=== PATIENT | female | born 1975 | race Caucasian/White ===

== ENCOUNTER 2017-02-07 12:46 | Emergency (ER) | payer OTHER ==
[2017-02-07] MEDS ORDERED: oxyCOD/ACETAMIN 5 MG/325 MG TABLET PO STA (13:28)
[2017-02-07] MEDS ORDERED: LIDOCAINE PATCH 5% TOP STA (13:28)
[2017-02-07] MEDS ORDERED: DEXAMETHASONE 10 MG/ML VIAL PO STA (13:28)
--- NOTE | 2017-02-07 13:32 | ED Physician Documentation ---
History of Present Illness - Stated complaint Stated Complaint: L SHOULDER PX - Chief complaint Chief Complaint: Ext Problem - Additonal information Additional information: hx from pt 41 f to ER with insidious inset severe L scapula and shoulder pain rad to mid upper L arm no trauma started after a trip to [place] very rare smoker no OCP no leg swellng no fever or cough no chest pain no nita soa except it does hurt to breath no rash saw PMD at [facility] rx motrin and mm relaxant and she is not better tried massage and not better feels something is very wrong Review of Systems Constitutional: denies: Fever, Chills Cardiac: denies: Chest pain / pressure Respiratory: denies: Dyspnea, Cough GI: denies: Abdominal Pain : denies: Now EGA (denies) Musculoskeletal: reports: Neck pain, Extremity pain, Joint pain Neurologic: denies: Focal weakness, Numbness Endocrine: denies: Easy bruising / bleeding Immunocompromised: denies: Immunocompromised PD PAST MEDICAL HISTORY - Past Medical History Past Medical History: Yes GI: Other Psych: Anxiety Other Past Medical History: heart burn - Past Surgical History Past Surgical History: No - Present Medications Home Medications: Ambulatory Orders Medication Instructions Recorded Confirmed Citalopram [CeleXA] 20 mg PO DAILY 02/07/17 02/07/17 Heart Burn Medication 40 mg PO DAILY 02/07/17 Lidocaine Patch 5% [Lidoderm Patch] 1 each TOP DAILY PRN #10 patch 02/07/17 predniSONE [Deltasone] 20 mg PO [id number] #21 tab 02/07/17 traMADol [Ultram] 50 mg PO Q6H PRN #15 tablet 02/07/17 - Allergies Allergies/Adverse Reactions: Allergies Allergy/AdvReac Type Severity Reaction Status Date / Time Penicillins Allergy Itching Verified 02/07/17 13:00 - Social History Does the pt smoke?: Yes Smoking Status: Current some day smoker Does the pt drink ETOH?: No Does the pt have substance abuse?: No - Immunizations Immunizations are current?: Yes - POLST Patient has POLST: No PD ED PE NORMAL - Vitals Vital signs reviewed: Yes (BP high) - General General: Alert and oriented X 3 - Neck Neck: No bony TTP, Other (some TTP low lat left neck) - Cardiac Cardiac: RRR - Respiratory Respiratory: No respiratory distress, Clear bilaterally - Abdomen Abdomen: Soft, Non tender - Derm Derm: Normal color, No rash (no shingles) - Extremities Extremities: No deformity, Other (TYP L trap and deltoid regions s focal redness or swelling, pain with extreme of ABD and ext but ranges rairle well, MSV to rest of arm) - Neuro Neuro: No motor deficit, No sensory deficit Results - Vitals Vitals: Vital Signs - 24 hr 02/07/17 12:57 Temperature 36.6 C Heart Rate 77 Respiratory 18 Rate Blood Pressure 180/110 H O2 Saturation 99 Oxygen O2 Source Room air - Labs Labs: Laboratory Tests 02/07/17 02/07/17 02/07/17 14:15 14:15 14:15 WBC 8.0 RBC 4.85 Hgb 14.3 Hct 41.6 MCV 85.7 MCH 29.5 MCHC 34.4 RDW 12.4 Plt Count 289 MPV 7.3 L Neut # 5.2 Lymph # 2.1 Stark # 0.6 Eos # 0.1 Baso # 0.0 Absolute Nucleated RBC 0.00 Nucleated RBC % 0.0 D-Dimer 210.9 Sodium Potassium Chloride Carbon Dioxide Anion Gap BUN Creatinine Estimated GFR (MDRD) Glucose Calcium Total Bilirubin AST ALT Alkaline Phosphatase Total Protein Albumin Globulin Albumin/Globulin Ratio Lipase Serum HCG, Qual NEGATIVE 02/07/17 14:15 WBC RBC Hgb Hct MCV MCH MCHC RDW Plt Count MPV Neut # Lymph # Stark # Eos # Baso # Absolute Nucleated RBC Nucleated RBC % D-Dimer Sodium 137 Potassium 3.7 Chloride 102 Carbon Dioxide 24 Anion Gap 11.0 BUN 18 Creatinine 0.7 Estimated GFR (MDRD) 93 Glucose 86 Calcium 9.5 Total Bilirubin 0.7 AST 17 ALT 19 Alkaline Phosphatase 52 Total Protein 7.5 Albumin 4.3 Globulin 3.2 Albumin/Globulin Ratio 1.3 Lipase 33 Serum HCG, Qual - Rads (name of study) CXR Radiology: See rad report (no acute) shoulder Radiology: See rad report (no acute) CTA chest Radiology: See rad report (no dissection or aneurysm, no abn to explain the pain ) Departure - Departure Disposition: 01 Home, Self Care Clinical Impression: Left shoulder pain Qualifiers: Chronicity: acute Qualified Code(s): M25.512 - Pain in left shoulder Condition: Good Follow-Up: [facility] [Provider Group] Prescriptions: Lidocaine Patch 5% [Lidoderm Patch] 1 each TOP DAILY PRN #10 patch PRN Reason: Pain predniSONE [Deltasone] 20 mg PO [id number] #21 tab traMADol [Ultram] 50 mg PO Q6H PRN #15 tablet PRN Reason: Severe Pain Comments: All the tests came back fine. The blood work, xrays and even CT scan did not show any heart or lung process to cause the pain nor any deep tissue infection or mass. I am not certain, but given the reassuring work up and the fact that the pain is worse with motion make me think it is likely a muscular problem. Try a tapering course of prednisone instead of the motrin May use lidocaine patches up to 12 hr a day And the muscle relaxant your PMD prescribed. If the pain is still very severe you can also take tramadol but that may cause drowsiness. If the symptoms do not resolve in another week or so, please see you PMD to get further work up for rheumatologic problems such as polymyalgia rheumatics which are beyond the scope of the ER to work up and diagnose Alos please get your blood pressure rechecked - it was high today - likely due to the severe pain
[2017-02-07] MEDS ORDERED: oxyCOD/ACETAMIN 5 MG/325 MG TABLET PO ONE (13:38)
[2017-02-07] MEDS ORDERED: LIDOCAINE PATCH 5% TOP ONE (13:38)
[2017-02-07] MEDS ORDERED: DEXAMETHASONE 10 MG/ML VIAL ONE (13:38)
--- NOTE | 2017-02-07 14:11 | XRAY Preliminary Report ---
Exam: XR Chest 2 View PA/LAT IMPRESSION: 1. No acute disease in the chest. [facility] SITE ID: [id number]
--- NOTE | 2017-02-07 14:12 | XRAY Preliminary Report ---
Exam: XR Shoulder 3 View LT IMPRESSION: 1. No acute osseous abnormalities. Normal alignment. 2. Mild degenerative changes of the left shoulder. [facility] SITE ID: [id number]
--- NOTE | 2017-02-07 14:14 | XRAY Report ---
EXAM: CHEST RADIOGRAPHY EXAM DATE: 02/07/2017 01:47 PM. CLINICAL HISTORY: Severe L scapula/shoulder pain. COMPARISON: None. TECHNIQUE: 2 views. FINDINGS: Lungs/Pleura: No focal opacities evident. No pleural effusion. No pneumothorax. Normal volumes. Mediastinum: Heart size is normal. Aorta is mildly tortuous. Other: No acute osseous abnormalities. IMPRESSION: 1. No acute disease in the chest. [facility] Referring Provider Line: [phone] SITE ID: [id number]
--- NOTE | 2017-02-07 14:15 | XRAY Report ---
EXAM: LEFT SHOULDER RADIOGRAPHY EXAM DATE: 02/07/2017 01:48 PM. CLINICAL HISTORY: Severe L scapula and shoulder pain. COMPARISON: None. TECHNIQUE: 3 views. FINDINGS: Bones: No acute fracture or bony lesion. Minimal degenerative spurring. Type I acromion. Joints: Normal alignment. No dislocation. Mild joint space narrowing of the left acromioclavicular an d left glenohumeral joints. Soft tissues: The visualized hemithorax is unremarkable. No soft tissue swelling. IMPRESSION: 1. No acute osseous abnormalities. Normal alignment. 2. Mild degenerative changes of the left shoulder. [facility] Referring Provider Line: [phone] SITE ID: [id number]
[2017-02-07 14:27] LABS: BASOPHILS % (AUTO) 0.5 %; EOSINOPHILS # (AUTO) 0.1 10^3/uL (0.0-0.7); EOSINOPHILS % (AUTO) 1.1 %; HCT - HEMATOCRIT 41.6 % (37.0-47.0); HGB - HEMOGLOBIN 14.3 g/dL (12.0-16.0); LYMPHOCYTES # (AUTO) 2.1 10^3/uL (1.5-3.5); LYMPHOCYTES % (AUTO) 25.9 %; MEAN CORPUSCULAR HEMOGLOBIN 29.5 pg (27.0-31.0); MEAN CORPUSCULAR HGB CONC 34.4 g/dL (32.0-36.0); MEAN CORPUSCULAR VOLUME 85.7 fL (81.0-99.0); MEAN PLATELET VOLUME 7.3 fL (7.9-10.8); MONOCYTES # (AUTO) 0.6 10^3/uL (0.0-1.0); MONOCYTES % (AUTO) 7.1 %; NEUTROPHILS # (AUTO) 5.2 10^3/uL (1.5-6.6); NEUTROPHILS % (AUTO) 65.4 %; RED BLOOD COUNT 4.85 10^6/uL (4.20-5.40); RED CELL DISTRIBUTION WIDTH 12.4 % (12.0-15.0)
[2017-02-07] MEDS ORDERED: SODIUM CHLORIDE FLUSH 0.9% 10 ML SYRINGE IVP ONE ×2 (14:34→15:03)
[2017-02-07 14:35] LABS: ALBUMIN/GLOBULIN RATIO 1.3 (1.0-2.2); BILIRUBIN,TOTAL 0.7 mg/dL (0.2-1.0); CALCIUM 9.5 mg/dL (8.5-10.3); CREATININE 0.7 mg/dL (0.4-1.0); POTASSIUM 3.7 mmol/L (3.5-5.0); TOTAL PROTEIN 7.5 g/dL (6.7-8.2)
[2017-02-07] MEDS ORDERED: MORPHINE 2 MG/ML SYRINGE IVP STA (14:52)
[2017-02-07] MEDS ORDERED: MORPHINE 2 MG/ML SYRINGE ONE (14:59)
[2017-02-07] MEDS ORDERED: IOPAMIDOL-300 100 ML VIAL ONE (15:08)
[2017-02-07] MEDS ORDERED: IOPAMIDOL-300 100 ML VIAL IVP ONE (15:09)
--- NOTE | 2017-02-07 15:40 | CT Preliminary Report ---
Exam: CT Chest Angio (AORTA) IMPRESSION: No acute abnormality. No aortic aneurysm or dissection. No findings to explain upper back and left sh oulder pain. [facility] SITE ID: [id number]
--- NOTE | 2017-02-07 15:43 | CT Report ---
EXAM: CT ANGIOGRAM CHEST EXAM DATE: 02/07/2017 03:17 PM. CLINICAL HISTORY: Severe L shoulder and upper back pain. COMPARISONS: Chest and shoulder radiography performed earlier the same day. TECHNIQUE: Routine axial helical CT angiographic imaging was performed through the chest. IV Contrast: 80 cc Iso jolanta 300. Reconstructions: Coronal, sagittal, and 3D MIP coronal and sagittal. In accordance with CT protocol optimization, one or more of the following dose reduction techniques w ere utilized for this exam: automated exposure control, adjustment of mA and/or KV based on patient s ize, or use of iterative reconstructive technique. FINDINGS: Vascular Structures: Normal. No aneurysm, dissection, or atherosclerotic disease of the thoracic aort a. Note that evaluation for intramural hematoma is somewhat suboptimal secondary to the absence of a precontrast phase. The visualized pulmonary arteries are within normal limits; no pulmonary embolism. Conventional branching pattern of the great vessels. Lungs/Pleura: 2 mm calcified granuloma in the lateral inferior right upper lobe. No consolidation, garcia spicious nodules, or edema. No effusions or pneumothorax. Mediastinum: Normal. No cardiac enlargement or adenopathy. No pericardial effusion. Upper abdomen: Within normal limits. Bones: Normal. Other: None. IMPRESSION: No acute abnormality. No aortic aneurysm or dissection. No findings to explain upper back and left sh oulder pain. [facility] Referring Provider Line: [phone] SITE ID: [id number]
[2017-02-07 16:24] VITALS: BP 176/101
[2017-02-07] MEDS ORDERED: traMADol 50 MG TABLET PO STA (16:25)
[2017-02-07] MEDS ORDERED: traMADol 50 MG TABLET PO ONE (16:35)
== END 2017-02-07 16:48 | disposition home or self-care (01) ==
LOC: ED 12:46
DX: M25.512 Pain in left shoulder (principal); F17.200 Nicotine dependence, unspecified, uncomplicated
CPT/HCPCS: 36415; 71020; 71275; 73030; 80053; 83690; 84703; 85025; 85379; 96374; 99283; 99284; A9270; J2270; Q9967

== ENCOUNTER 2017-02-20 12:35 | Emergency (ER) | payer OTHER ==
--- NOTE | 2017-02-20 13:01 | ED Physician Documentation ---
PD HPI UPPER EXT INJURY - Stated complaint Stated Complaint: INJECTION SITE REDNESS/SWOLLEN - Chief complaint Chief Complaint: Ext Problem - History obtained from History obtained from: Patient - History of Present Illness Location: Other (Seen here 2 weeks ago for shoulder pain, had an IV in the right antecubital fossa and had medications and contrast infused through that. Was bothering her a little bit at the time but over the next few days started to become more painful and has difficulty extending the arm at the elbow. Now has swelling of the anterior forearm as well and pain radiates up to the bicep. There is no associated shortness of breath or fever, no chest pain. No history of DVT or PE.) Review of Systems Constitutional: reports: Reviewed and negative Nose: reports: Reviewed and negative Cardiac: reports: Reviewed and negative Respiratory: reports: Reviewed and negative PD PAST MEDICAL HISTORY - Past Medical History GI: Other Psych: Anxiety - Past Surgical History Past Surgical History: No - Present Medications Home Medications: Ambulatory Orders Medication Instructions Recorded Confirmed Citalopram [CeleXA] 20 mg PO DAILY 02/07/17 02/20/17 Rivaroxaban [Xarelto] 15 mg PO BID #42 tablet 02/20/17 - Allergies Allergies/Adverse Reactions: Allergies Allergy/AdvReac Type Severity Reaction Status Date / Time Penicillins Allergy Itching Verified 02/20/17 12:45 - Social History Does the pt smoke?: Yes Smoking Status: Current some day smoker Does the pt drink ETOH?: No Does the pt have substance abuse?: No - Immunizations Immunizations are current?: Yes - POLST Patient has POLST: No PD ED PE NORMAL - Vitals Vital signs reviewed: Yes - General General: Alert and oriented X 3, No acute distress - Extremities Extremities: Other (There is no area of tenderness and swelling of the anterior right forearm from a couple of centimeters distal to the antecubital fossa to about two [address] to the wrist with slight angioedema of the area and slight warmth but no redness. She is tender at the antecubital fossa and there is no tenderness over the bicep. She has normal radial pulses, normal sensation in all area of the hands, normal harvest manager strength, interosseous strength , thumb extension, and flexion and extension of the wrist.) - Neuro Neuro: Alert and oriented X 3, Normal speech - Psych Psych: Normal mood, Normal affect Results - Vitals Vitals: Vital Signs - 24 hr 02/20/17 12:43 Temperature 36.2 C L Heart Rate 82 Respiratory 18 Rate Blood Pressure 134/93 H O2 Saturation 96 Oxygen O2 Source Room air - Rads (name of study) DVT Scan RUE Radiology: EMP read contemporaneously (Positive for DVT, cephalic vein in the right upper extremity) PD MEDICAL DECISION MAKING - ED course ED course: 41-year-old woman with provoked DVT of the right upper extremity after IV placement. She is started on Xarelto. She has an appointment with her doctor in 1 week. Departure - Departure Disposition: Home, Self Care Clinical Impression: DVT (deep venous thrombosis) Qualifiers: DVT location: upper extremity Affected thrombotic vein of extremity: other upper extremity vein Chronicity: acute Laterality: right Qualified Code(s): I82.621 - Acute embolism and thrombosis of deep veins of right upper extremity Condition: Good Record reviewed to determine appropriate education?: Yes Instructions: ED DVT Prescriptions: Rivaroxaban [Xarelto] 15 mg PO BID #42 tablet Comments: Follow-up with your doctor in 1 week as scheduled for recheck. Return if worse or if he develop chest pain or trouble breathing. Your blood pressure was elevated today on check into the emergency department. This does not mean that you have hypertension, it is a common phenomenon to come to the emergency department and have elevated blood pressure. I recommend that you see your primary care physician within the week to have it rechecked when you are feeling better.
[2017-02-20] MEDS ORDERED: RIVAROXABAN 15 MG TABLET PO STA (14:39)
[2017-02-20 15:02] VITALS: BP 138/95
--- NOTE | 2017-02-20 16:10 | Ultrasound Report ---
RIGHT ARM VENOUS DUPLEX: 02/20/2017 CLINICAL INDICATION: Right arm swelling. TECHNIQUE: Real-time sonographic vascular imaging was performed by the transformer mechanic through the right upper extremity utilizing both color-flow and Doppler spectral analysis. Multiple dental sales representative static images were saved for review. FINDINGS: There is normal compression and augmentation in the right internal jugular, subclavian, axillary, brachial, and basilic veins. There is thrombosis of the cephalic vein throughout its visualized length. IMPRESSION: CEPHALIC DVT. CRITICAL RESULT: RESULTS CALLED TO DR. MARSH IN THE EMERGENCY DEPARTMENT ON AT 1420 HRS. JOB #: [id number] EXT JOB #: MTDD
== END 2017-02-20 15:14 | disposition home or self-care (01) ==
LOC: ED 12:35
DX: I82.621 Acute embolism and thrombosis of deep veins of right upper extremity (principal); R03.0 Elevated blood-pressure reading, without diagnosis of hypertension; F17.200 Nicotine dependence, unspecified, uncomplicated
CPT/HCPCS: 93971; 99283; A9270

== ENCOUNTER 2017-11-21 12:34 | Emergency (ER) | payer OTHER ==
[2017-11-21] MEDS ORDERED: ACETAMINOPHEN 500 MG TABLET PO STA (13:53)
[2017-11-21 14:24] LABS: BASOPHILS # (AUTO) 0.1 10^3/uL (0.0-0.1); BASOPHILS % (AUTO) 0.6 %; EOSINOPHILS # (AUTO) 0.1 10^3/uL (0.0-0.7); HGB - HEMOGLOBIN 14.3 g/dL (12.0-16.0); LYMPHOCYTES # (AUTO) 1.5 10^3/uL (1.5-3.5); LYMPHOCYTES % (AUTO) 18.2 %; MEAN CORPUSCULAR HEMOGLOBIN 29.8 pg (27.0-31.0); MEAN CORPUSCULAR HGB CONC 34.9 g/dL (32.0-36.0); MEAN CORPUSCULAR VOLUME 85.3 fL (81.0-99.0); MEAN PLATELET VOLUME 6.8 fL (7.9-10.8); MONOCYTES # (AUTO) 0.6 10^3/uL (0.0-1.0); MONOCYTES % (AUTO) 6.6 %; NEUTROPHILS # (AUTO) 6.1 10^3/uL (1.5-6.6); NEUTROPHILS % (AUTO) 73.6 %; PLT - PLATELET COUNT 330 10^3/uL (130-450); RED CELL DISTRIBUTION WIDTH 12.8 % (12.0-15.0); WHITE BLOOD COUNT 8.3 x10^3/uL (4.8-10.8)
--- NOTE | 2017-11-21 14:29 | ED Physician Documentation ---
History of Present Illness - Stated complaint Stated Complaint: THROAT PX - Chief complaint Chief Complaint: Fever - History obtained from History obtained from: Patient - Additonal information Additional information: 42-year-old female presents the emergency department with 12 days of sore throat. The patient reports pain with swallowing, the patient reports no relieving factors. The patient denies any sick contacts, throat swelling, nasal congestion or shortness of breath. The patient does report intermittent episodes of cough. No other associated symptoms. Symptoms are described as moderate Review of Systems Constitutional: reports: Fever, Fatigue Eyes: denies: Loss of vision Ears: denies: Loss of hearing Nose: denies: Rhinorrhea / runny nose, Congestion Throat: reports: Sore throat. denies: Oral lesions / sores, Swallowed foreign body Respiratory: reports: Cough GI: reports: Nausea : denies: Dysuria Skin: denies: Rash Immunocompromised: denies: Chemotherapy PD PAST MEDICAL HISTORY - Past Medical History GI: GERD, Other Psych: Anxiety - Past Surgical History Past Surgical History: No - Present Medications Home Medications: Ambulatory Orders Medication Instructions Recorded Confirmed Cephalexin [Keflex] 500 mg PO BID #20 capsule 11/21/17 Citalopram [CeleXA] 20 mg 11/21/17 - Allergies Allergies/Adverse Reactions: Allergies Allergy/AdvReac Type Severity Reaction Status Date / Time Penicillins Allergy Itching Verified 11/21/17 12:40 - Social History Does the pt smoke?: Yes Smoking Status: Current every day smoker Does the pt drink ETOH?: No Does the pt have substance abuse?: No - Immunizations Immunizations are current?: Yes - POLST Patient has POLST: No PD ED PE NORMAL - General General: Alert and oriented X 3, No acute distress, Well developed/nourished - HEENT HEENT: Atraumatic, PERRL, EOMI, Ears normal, Other (The uvula is midline and nonedematous, the patient's right tonsil is enlarged and erythematous with exudative lesions, the left tonsil is slightly erythematous, nonenlarged with no exudative plaques. There is no area to suggest peritonsillar abscess. The tongue is within normal limits. The floor the mouth is moist and soft.) - Neck Neck: No adenopathy - Cardiac Cardiac: RRR - Respiratory Respiratory: No respiratory distress - Derm Derm: Normal color - Neuro Neuro: Alert and oriented X 3, No motor deficit - Psych Psych: Normal mood Results - Vitals Vitals: Vital Signs - 24 hr 11/21/17 12:38 Temperature 36 C L Heart Rate 70 Respiratory 18 Rate Blood Pressure 156/113 H O2 Saturation 99 Oxygen O2 Source Room air - Labs Labs: Laboratory Tests 11/21/17 11/21/17 11/21/17 12:45 14:17 14:17 WBC 8.3 RBC 4.80 Hgb 14.3 Hct 40.9 MCV 85.3 MCH 29.8 MCHC 34.9 RDW 12.8 Plt Count 330 MPV 6.8 L Neut # (Auto) 6.1 Lymph # (Auto) 1.5 [place] # (Auto) 0.6 Eos # (Auto) 0.1 Baso # (Auto) 0.1 Absolute Nucleated RBC 0.00 Nucleated RBC % 0.0 Infectious [place] Assay NEGATIVE Group A Strep Rapid Negative PD MEDICAL DECISION MAKING - ED course ED course: Given the duration of the patient's symptoms she will be treated for bacterial etiology. The patient is allergic to penicillin so she will be placed on a cephalosporin. The patient appears appropriate for discharge home in ongoing outpatient management. I advised that she should follow-up with primary care, if her symptoms do not improve she may need referral to ENT. The patient understands and agrees. I discussed warning signs and recommended returning to the emergency department for any worsening or concerns. - Sepsis Event Vital Signs: Vital Signs - 24 hr 11/21/17 12:38 Temperature 36 C L Heart Rate 70 Respiratory 18 Rate Blood Pressure 156/113 H O2 Saturation 99 Oxygen O2 Source Room air Departure - Departure Disposition: 01 Home, Self Care Clinical Impression: Acute tonsillitis Qualifiers: Pharyngitis/tonsillitis etiology: unspecified etiology Qualified Code(s): J03.90 - Acute tonsillitis, unspecified Condition: Good Instructions: ED Tonsillitis Prescriptions: Cephalexin [Keflex] 500 mg PO BID #20 capsule Comments: Please follow-up with your primary care physician in 1 week. Please return to the emergency department for worsening symptoms or any concerns
[2017-11-21] MEDS ORDERED: DEXAMETHASONE 10 MG/ML VIAL PO STA (14:35)
[2017-11-21] MEDS ORDERED: cephALEXin 250 MG CAPSULE PO STA (14:38)
[2017-11-21] MEDS ORDERED: CHERRY SYRUP 10 ML UDC PO ONE (15:00)
[2017-11-21 15:02] VITALS: BP 157/97
== END 2017-11-21 15:01 | disposition home or self-care (01) ==
LOC: ED 12:34
DX: J03.90 Acute tonsillitis, unspecified (principal); F17.200 Nicotine dependence, unspecified, uncomplicated
CPT/HCPCS: 36415; 85025; 86308; 87070; 87430; 99283; A9270

== ENCOUNTER 2019-01-13 13:47 | Emergency (ER) | payer OTHER ==
--- NOTE | 2019-01-13 14:17 | ED Physician Documentation ---
PD HPI ANIMAL BITE - Stated complaint Stated Complaint: RT LEG STING - Chief complaint Chief Complaint: Wound - History obtained from History obtained from: Patient - History of Present Illness Location of injury(ies): RLE (She was stung in the back of the right leg by a wasp yesterday with localized itching swelling and burning. No fevers or chills. No other injuries. No shortness of breath or throat swelling. No diffuse rash.) Review of Systems Constitutional: reports: Reviewed and negative Throat: reports: Reviewed and negative Cardiac: reports: Reviewed and negative PD PAST MEDICAL HISTORY - Past Medical History GI: GERD, Other Psych: Anxiety - Past Surgical History Past Surgical History: No - Present Medications Home Medications: Ambulatory Orders Medication Instructions Recorded Confirmed Cephalexin [Keflex] 500 mg PO BID #20 capsule 11/21/17 Citalopram [CeleXA] 20 mg 11/21/17 Doxepin [SINEquan] 10 mg PO TID PRN #30 capsule 01/13/19 predniSONE [Deltasone] 60 mg PO DAILY 5 Days #15 tablet 01/13/19 - Allergies Allergies/Adverse Reactions: Allergies Allergy/AdvReac Type Severity Reaction Status Date / Time Penicillins Allergy Itching Verified 11/21/17 12:40 - Social History Does the pt smoke?: Yes Smoking Status: Current every day smoker Does the pt drink ETOH?: No Does the pt have substance abuse?: No - Immunizations Immunizations are current?: Yes - POLST Patient has POLST: No PD ED PE NORMAL - Vitals Vital signs reviewed: Yes - General General: Alert and oriented X 3, No acute distress - Extremities Extremities: Other (There is an indurated inflamed area just above the popliteal fossa medially on the right leg consistent with a bee sting reaction.) - Neuro Neuro: Alert and oriented X 3, Normal speech Results - Vitals Vitals: Vital Signs - 24 hr 01/13/19 13:57 Temperature 36 C L Heart Rate 65 Respiratory 18 Rate Blood Pressure 152/93 H O2 Saturation 98 Oxygen O2 Source Room air Departure - Departure Disposition: 01 Home, Self Care Clinical Impression: Local reaction to bee sting Qualifiers: Encounter type: initial encounter Injury intent: accidental or unintentional Qualified Code(s): T63.441A - Toxic effect of venom of bees, accidental (unintentional), initial encounter Condition: Good Record reviewed to determine appropriate education?: Yes Instructions: ED Bite Sting Insect Local Allergic React Prescriptions: Doxepin [SINEquan] 10 mg PO TID PRN #30 capsule PRN Reason: Itching predniSONE [Deltasone] 60 mg PO DAILY 5 Days #15 tablet Comments: Return if you develop a fever or otherwise worsening. Your blood pressure was elevated today on check into the emergency department. This does not mean that you have hypertension, it is a common phenomenon to come to the emergency department and have elevated blood pressure. I recommend that you see your primary care physician within the week to have it rechecked when you are feeling better.
[2019-01-13 14:21] VITALS: BP 148/88
== END 2019-01-13 14:20 | disposition home or self-care (01) ==
LOC: ED 13:47
DX: T63.461A Toxic effect of venom of wasps, accidental (unintentional), initial encounter (principal); X58.XXXA Exposure to other specified factors, initial encounter; R03.0 Elevated blood-pressure reading, without diagnosis of hypertension; F17.200 Nicotine dependence, unspecified, uncomplicated
CPT/HCPCS: 99282; 99283

== ENCOUNTER 2019-11-17 14:40 | Outpatient (CLI) | payer OTHER ==
--- NOTE | 2019-11-17 17:24 | MRI Report ---
PROCEDURE: Shoulder RT W/O INDICATIONS: PAIN IN RT SHLDR TECHNIQUE: Noncontrast oblique coronal T2 fast spin echo with fat saturation, oblique sagittal T1 spin echo and T2 fast spin echo with fat saturation, axial T1 spin echo and T2 fast spin echo with fat saturation t hrough the shoulder. COMPARISON: None. FINDINGS: Image quality: Diagnostic. Motion artifacts are noted. Rotator cuff: Tendinosis and low-grade articular and bursal surface partial-thickness tear involving distal supraspinatus and infraspinatus is seen at their insertion on the humeral head extending to mu sculotendinous junction. Distal subscapularis tendinosis and low-grade intrasubstance partial thickne ss tear is also noted. No full-thickness rotator cuff tendon rupture. No significant rotator cuff mus lesly atrophy on sagittal images. Bones and bursae: No bone marrow contusions or fractures. Mild to moderate acromioclavicular joint o steoarthritic changes are seen with downward osteophyte formation compressing on the musculotendinous junction of supraspinatus. Small amount of joint fluid is seen. No significant subacromial subdeltoi d bursal fluid. Capsule and soft tissues: In the absence of intra-articular contrast, the labrum and glenohumeral li gaments appear intact. The long head of the biceps tendinosis is noted. The rotator interval appears normal, without fibrosis. The coracohumeral ligament is normal in thickness. IMPRESSION: 1. Tendinosis and low-grade articular and bursal surface partial-thickness tear involving distal supr aspinatus and infraspinatus extending to musculotendinous junction. Distal subscapularis tendinosis a nd low-grade intrasubstance partial thickness tear. No full-thickness rotator cuff tendon rupture. 2. Mild to moderate acromioclavicular joint osteoarthritis. Small amount of joint fluid. 3. No gross focal labral tear. 4. Proximal intra-articular portion of long head of biceps tendinosis. Reviewed by: Hebert Nelson MD on 11/17/2019 5:22 PM PDT Approved by: Hebert Nelson MD on 11/17/2019 5:22 PM PDT Station ID: [id number]
== END 2019-11-17 14:41 | disposition home or self-care (01) ==
LOC: DI 14:40
PROVIDERS: ATTEND Internal Medicine
DX: M75.111 Incomplete rotator cuff tear or rupture of right shoulder, not specified as traumatic (principal); M67.921 Unspecified disorder of synovium and tendon, right upper arm; M19.011 Primary osteoarthritis, right shoulder

== ENCOUNTER 2019-11-26 13:14 | Outpatient (CLI) | payer OTHER ==
--- NOTE | 2019-11-27 12:44 | MRI Report ---
PROCEDURE: Ankle LT W/O INDICATIONS: PAIN IN LEFT ANKLE AND JOINTS TECHNIQUE: Noncontrast sagittal T1 spin echo and T2 fast spin echo with fat saturation, axial proton density fas t spin echo and T2 fast spin echo with fat saturation, coronal T1 spin echo and T2 fast spin echo wit h fat saturation through the ankle/hindfoot. COMPARISON: None. FINDINGS: Image quality: Excellent. Bones and joints: No bone marrow contusions or fractures. No hindfoot coalitions. No osteochondral injuries of the talar dome. Small amount of fluid within tibiotalar joint and subtalar joint is seen . No gross intra-articular loose body. Medial structures: The posterior tibialis, flexor digitorum longus, and flexor hallucis longus tendo ns are intact. The posterior tibial neurovascular bundle appears normal within the tarsal tunnel, wi thout extrinsic mass effect. The deep layer (anterior and posterior tibiotalar ligaments) and superf icial layer (tibionavicular, tibiospring, and tibiocalcaneal ligaments) of the deltoid ligament appea r normal. The spring ligament components (superomedial calcaneonavicular, medioplantar oblique calca neonavicular, and inferoplantar longitudinal ligaments) are intact. Lateral structures: The anterior talofibular, calcaneofibular, and posterior talofibular ligaments a ppear intact. More superiorly, the anterior and posterior tibiofibular ligaments appear normal, as i s the intermalleolar ligament. The tibiofibular syndesmosis is normal in width at 2 mm or less. The peroneus longus and brevis tendons are mildly thickened with small amount of fluid distending tendon sheath suggestive of low-grade tenosynovitis. Adjacent bony peroneal tubercle and retrotrochlear pro minence are normal in size. The sinus tarsi demonstrates normal fatty signal, without edema, fibrosi s, or cyst formation. Visualized sinus tarsi components (cervical ligament, interosseous talocalcane al ligament, roots of the inferior extensor retinaculum) appear normal. Anterior structures: The tibialis anterior, extensor hallucis longus, and extensor digitorum longus tendons appear intact. Posterior and plantar structures: Achilles tendon is intact. Medial and lateral bands of the planta r fascia are of normal thickness. No abductor digiti quinti muscle atrophy to suggest Gibson neuropa thy. IMPRESSION: 1. Finding is suggestive of low-grade tenosynovitis involving peroneus tendons at the level of distal lateral malleolus. Rest of the ankle tendons are intact. 2. Medial and lateral ankle ligaments are intact. 3. No marrow edema. No fracture or dislocation. Trace amount of joint effusion. Reviewed by: Hebert Nelson MD on 11/27/2019 12:43 PM PDT Approved by: Hebert Nelson MD on 11/27/2019 12:43 PM PDT Station ID: [id number]
== END 2019-11-26 13:15 | disposition home or self-care (01) ==
LOC: DI 13:14
PROVIDERS: ATTEND Internal Medicine
DX: R93.6 Abnormal findings on diagnostic imaging of limbs (principal)

== ENCOUNTER 2019-12-16 11:05 | Emergency (ER) | payer OTHER ==
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
[2019-12-16] MEDS ORDERED: KETOROLAC 30 MG/ML VIAL IM STA (11:40)
[2019-12-16] MEDS ORDERED: HYDROmorphone 2 MG/ML VIAL IM STA (11:40)
--- NOTE | 2019-12-16 13:13 | CT Report ---
PROCEDURE: THORACIC SPINE WO INDICATIONS: fall yesterday, with mid thoracic pain TECHNIQUE: Noncontrast 3 mm thick sections acquired through the region of interest in the thoracic spine. Sagit star and coronal reformats were then constructed. For radiation dose reduction, the following was used : automated exposure control, adjustment of mA and/or kV according to patient size. COMPARISON: None. FINDINGS: Image quality: Excellent. Bones: There is normal overall bony alignment. No acute vertebral body compression fractures. No s uspicious sclerotic or lytic bony lesions. Central spinal canal is of normal overall caliber. Soft tissues: No paravertebral masses or hematomas. Visualized posteromedial lungs appear clear. IMPRESSION: Negative CT thoracic spine in the setting of acute trauma. No evidence acute compression fracture. Reviewed by: Maurilio Tyler MD on 12/16/2019 1:11 PM PDT Approved by: Maurilio Tyler MD on 12/16/2019 1:11 PM PDT Station ID: [id number]
[2019-12-16] MEDS ORDERED: methocarbamoL 500 MG TABLET PO STA (13:28)
[2019-12-16] MEDS ORDERED: oxyCODONE 5 MG TABLET PO STA (13:28)
[2019-12-16 13:57] VITALS: BP 132/79
== END 2019-12-16 13:58 | disposition home or self-care (01) ==
LOC: ED 11:05
DX: M54.6 Pain in thoracic spine (principal); W16.312A Fall into other water striking water surface causing other injury, initial encounter; Y93.19 Activity, other involving water and watercraft; F17.200 Nicotine dependence, unspecified, uncomplicated
CPT/HCPCS: 72128; 96374; 99284; A9270; J1170

== ENCOUNTER 2019-12-29 13:29 | Outpatient (CLI) | payer OTHER ==
--- NOTE | 2019-12-29 17:05 | MRI Report ---
PROCEDURE: Foot LT W/O INDICATIONS: PAIN IN LT FOOT TECHNIQUE: Noncontrast coronal and sagittal T1 spin echo and STIR; axial T1 spin echo and T2 fast spin echo with fat saturation through the left foot. COMPARISON: None. FINDINGS: Image quality: Mild motion degradation of the study. Bones: No fractures lines or intra-osseous lesions. First MTP joint degeneration. There is mild nilda ow edema within the lateral hallux sesamoid Soft tissues: The scanned muscles demonstrate normal overall bulk and internal signal. Subcutaneous tissues appear normal as well. No soft tissue masses are present. No discrete mass present in the area of the fiducial marker. There is minimal fluid between the first and second metatarsals. IMPRESSION: Mild marrow edema present within the lateral hallux sesamoid raising possibility of sesamoiditis alth ough recommend clinical correlation. Minimal fluid between the first and second metatarsals raising possibility of intermetatarsal bursiti s. No evidence of stress fracture No discrete mass identified. Reviewed by: Tim Hanna MD on 12/29/2019 5:04 PM PDT Approved by: Tim Hanna MD on 12/29/2019 5:04 PM PDT Station ID: [id number]
== END 2019-12-29 13:30 | disposition home or self-care (01) ==
LOC: DI 13:29
PROVIDERS: ATTEND Orthopaedic Surgery
DX: R93.6 Abnormal findings on diagnostic imaging of limbs (principal)